=== PATIENT | male | born 1960 | race Caucasian/White ===

== ENCOUNTER → 2022-07-23 | Day surgery (SDC) | payer BC ==
[~2022-07-23] MED LIST: Glycopyrrolate 0.2 MG/ML 5 ML MDV IV ONE; Lactated Ringers 1,000 ML IV SCH; Lidocaine 2% 5 ML SDV IV ONE; Midazolam 1 MG/ML 2 ML SDV IV ONE; Propofol 200 MG/20 ML SDV IV ONE; Sodium Chloride 0.9% 10 ML Syringe FLUSH PRN
== END ==
LOC: FB.SDS 08:14
PROVIDERS: ATTEND Surgery
DX: Z12.11 Encounter for screening for malignant neoplasm of colon (principal); D12.6 Benign neoplasm of colon, unspecified; K62.1 Rectal polyp; K42.0 Umbilical hernia with obstruction, without gangrene; K40.90 Unilateral inguinal hernia, without obstruction or gangrene, not specified as recurrent; F32.A Depression, unspecified; F17.210 Nicotine dependence, cigarettes, uncomplicated; Z98.890 Other specified postprocedural states; Z79.899 Other long term (current) drug therapy
CPT/HCPCS: 00812-QZ; 88305; J2250; J2704; J3490; J7120

== ENCOUNTER 2025-02-18 06:51 | Day surgery (SDC) | payer BC, OTHER ==
[2025-02-18] MEDS ORDERED: Propofol 200 MG/20 ML SDV IV ONE (06:52)
[2025-02-18] MEDS ORDERED: Midazolam 1 MG/ML 2 ML SDV IV ONE (06:52)
[2025-02-18] MEDS ORDERED: Sodium Chloride 0.9% 10 ML Syringe FLUSH PRN (07:00)
[2025-02-18] MEDS: Lactated Ringers 1,000 ML IV SCH (08:01)
== END 2025-02-18 09:45 | disposition home or self-care (01) ==
LOC: FB.SDS 06:51
PROVIDERS: ATTEND Surgery
DX: Z12.11 Encounter for screening for malignant neoplasm of colon (principal); K63.5 Polyp of colon; Z86.0101 Personal history of adenomatous and serrated colon polyps; F17.210 Nicotine dependence, cigarettes, uncomplicated
CPT/HCPCS: 00811; 45385; 88305; A9270; J2250; J2704; J7120